=== PATIENT | male | born 1995 | race Caucasian/White ===

== ENCOUNTER 2019-12-26 09:35 | Emergency (ER) | payer BC ==
[~2019-12-26] VITALS: Ht 165.1 cm; Wt 86.2 kg
[2019-12-26 09:39] VITALS: BP_SYST 128
[2019-12-26 10:20] VITALS: BP_SYST 128
== END 2019-12-26 10:19 | disposition home or self-care (01) ==
LOC: SED 09:35
DX: Z48.00 Encounter for change or removal of nonsurgical wound dressing (principal)
CPT/HCPCS: 99281